=== PATIENT | female | born 1970 | race Caucasian/White ===

== ENCOUNTER 2019-06-19 14:12 | Emergency (ER) | payer OTHER ==
[~2019-06-19] VITALS: Ht 154.9 cm; Wt 81.6 kg
[2019-06-19] MEDS ORDERED: LEXAPRO20 MG ORAL (14:26)
[2019-06-19] MEDS ORDERED: LEVOTHYROXINE125 MCG ORAL (14:26)
[2019-06-19] MEDS ORDERED: ZOLPIDEM TARTRAT5 MG ORAL (14:26)
[2019-06-19 14:30] VITALS: BP 137/88
[2019-06-19] MEDS ORDERED: Ketorolac 30mg Inj IM ONE (14:45)
--- NOTE | 2019-06-19 15:12 | Emergency Room Report ---
History of Present Illness General Chief Complaint: Multiple Trauma/Fall Source: Patient Present Illness HPI 49-year-old female with no significant past medical history here complaining of left lower leg and right knee pain after a fall at [employer] earlier today. Patient reports that she was pushing her cart as she slipped over water landed on her left lower leg and right knee. Denies any head injury or loss of consciousness. Rates the pain 10 without radiation. Denies any tingling numbness. Has full range of motion of both extremities. Has not taken medication for symptom relief. Denies being on any blood thinners. Neurovascularly intact. Denies Allergies: Coded Allergies: CODEINE (Verified Allergy, Unknown, 06/19/19) Patient History Past Medical History: see triage record Past Surgical History: none Pertinent Family History: none Last Menstrual Period: hysterectomy 2018 Now: No Immunizations: UTD Reviewed Nursing Documentation: PMH: Agreed; PSxH: Agreed Nursing Documentation-PMH Past Medical History: No Stated History Review of Systems All Other Systems: negative except mentioned in HPI Physical Exam Vital Signs Date Time Temp Pulse Resp B/P (MAP) Pulse Ox O2 Delivery O2 Flow Rate FiO2 06/19/19 14:23 97.3 83 18 137/88 (104) 97 Room Air Sp02 EP Interpretation: reviewed, normal General Appearance: no apparent distress, alert, GCS 15, non-toxic Head: normocephalic, atraumatic Eyes: bilateral eye normal inspection, bilateral eye PERRL ENT: hearing grossly normal, normal pharynx, no angioedema, normal voice Neck: full range of motion, supple/symm/no masses Respiratory: chest non-tender, lungs clear, normal breath sounds, no rhonchi, no respiratory distress, no retraction, no accessory muscle use, no wheezing, speaking full sentences Cardiovascular #1: regular rate, rhythm, no edema, no murmur Cardiovascular #2: 2+ dorsalis pedis (R), 2+ dorsalis pedis (L) Gastrointestinal: normal bowel sounds, non tender, soft, no mass, non-distended , no guarding, no rebound Rectal: deferred Genitourinary: no CVA tenderness Musculoskeletal: back normal, normal range of motion, no calf tenderness, pelvis stable, non-tender, swelling - Left tib-fib Neurologic: alert, motor strength/tone normal, oriented x3, sensory intact, responsive, speech normal Psychiatric: judgement/insight normal, memory normal, mood/affect normal, no suicidal/homicidal ideation Skin: no rash Lymphatic: no adenopathy Medical Decision Making PA Attestation All diagnoses and treatment plans were reviewed and discussed with my supervising physician Dr. Pyle Diagnostic Impression: Primary Impression: Contusion, lower leg Additional Impression: Knee sprain ER Course 49-year-old female with no significant past medical history here complaining of left lower leg and right knee pain after a fall at [employer] earlier today. Patient reports that she was pushing her cart as she slipped over water landed on her left lower leg and right knee. Denies any head injury or loss of consciousness. Rates the pain 10 without radiation. Denies any tingling numbness. Has full range of motion of both extremities. Has not taken medication for symptom relief. Denies being on any blood thinners. Neurovascularly intact. Denies Ddx considered but are not limited to: Knee sprain, strain, fracture, contusion , meniscus tear injury, left tib-fib fracture versus contusion versus sprain Vital signs: are WNL, pt. is afebrile H&PE are most consistent with: Lower leg contusion, knee sprain ORDERS: Knee x-ray, left tib-fib x-ray, Motrin Robaxin ER intervention: Toradol IM DISCHARGE: At this time pt. is stable for d/c to home. Will provide printed patient care instructions, and any necessary prescriptions. Care plan and follow up instructions have been discussed with the patient prior to discharge. Take medication as directed, alternating icing and heating the affected area, follow-up with your primary care provider, if worsening symptoms return to the emergency room Other X-Ray Diagnostic Results Other X-Ray Diagnostic Results #1: X-Ray ordered: left tib fib # of Views/Limited Vs Complete: 2 View Indication: Pain EP Interpretation: Yes PA Xray: Interpretation reviewed, by supervising MD, and agrees with findings. Interpretation: no dislocation, no soft tissue swelling, no fractures Impression: No acute disease Electronically Signed by: Lizandro Lo PA-C Other X-Ray Diagnostic Results #2: X-Ray ordered: Right knee # of Views/Limited Vs Complete: 3 View Indication: Pain EP Interpretation: Yes PA Xray: Interpretation reviewed, by supervising MD, and agrees with findings. Interpretation: no dislocation, no soft tissue swelling, no fractures Impression: No acute disease Electronically Signed by: Lizandro Lo PA-C Last Vital Signs Date Time Temp Pulse Resp B/P (MAP) Pulse Ox O2 Delivery O2 Flow Rate FiO2 06/19/19 15:03 97.3 06/19/19 14:30 83 18 137/88 97 Room Air Status: improved Disposition: HOME, SELF-CARE Condition: Stable Scripts Ibuprofen* (MOTRIN*) 600 Mg Tablet 600 MG ORAL Q8H PRN for For Pain, #30 TAB 0 Refills Prov: Lizandro Ross 06/19/19 Methocarbamol* (ROBAXIN-500*) 500 Mg Tablet 500 MG ORAL TID PRN for For Pain, #15 TAB 0 Refills Prov: Lizandro Ross 06/19/19 Referrals: NOT CHOSEN IPA/,REFERRING (PCP) Patient Instructions: Contusion, [id number], Knee Sprain, [id number] Additional Instructions: Take medication as directed, follow with primary care provider, alternating icing and heating affected area, if worsening symptoms return to the emergency room Lizandro Ross Jun 19, 2019 15:12
[2019-06-19] MEDS ORDERED: IBUPROFEN600 MG ORAL (15:13)
[2019-06-19] MEDS ORDERED: ROBAXIN-500MG ORAL (15:13)
[2019-06-19 15:14] VITALS: BP 145/84
--- NOTE | 2019-06-20 13:01 | Diagnostic Imaging Report ---
Indication: Left leg pain Comparison: None Findings: Two views of the left tibia and fibula were obtained. No acute fracture, malalignment, or periosteal reaction are identified. Soft tissues are unremarkable. Impression: No acute injury.
--- NOTE | 2019-06-20 13:02 | Diagnostic Imaging Report ---
Indication: Right knee Pain 3 views of the right knee were obtained. Findings: No acute fracture, malalignment, or joint effusion are identified. Impression: Negative for acute findings.
== END 2019-06-19 15:17 | disposition home or self-care (01) ==
LOC: EMR 14:49
DX: S80.12XA Contusion of left lower leg, initial encounter (principal); S83.91XA Sprain of unspecified site of right knee, initial encounter; W01.0XXA Fall on same level from slipping, tripping and stumbling without subsequent striking against object, initial encounter; Y92.9 Unspecified place or not applicable; Z88.6 Allergy status to analgesic agent
CPT/HCPCS: 73562; 73590; 96372; 99284; J1885